=== PATIENT | male | born 1970 | race African-American/Black ===

== ENCOUNTER 2017-03-19 11:34 | Emergency (ER) | payer MEDICAID | END 2017-03-19 12:15 | disposition left against medical advice (07) | LOC: ER 11:34 | DX: M79.604 Pain in right leg (principal); Z53.21 Procedure and treatment not carried out due to patient leaving prior to being seen by health care provider ==

== ENCOUNTER 2017-03-20 16:02 | Emergency (ER) | payer MEDICAID ==
[~2017-03-20] VITALS: Ht 170.2 cm; Wt 81.6 kg
[2017-03-20] MEDS ORDERED: KETOROLAC TROMETH 60MG/2ML VIAL IM ONE (18:00)
[2017-03-20 18:09] VITALS: BP 163/100
== END 2017-03-20 18:52 | disposition home or self-care (01) ==
LOC: ER 16:05
DX: S83.8X2A Sprain of other specified parts of left knee, initial encounter (principal); E11.9 Type 2 diabetes mellitus without complications; E78.5 Hyperlipidemia, unspecified; I10 Essential (primary) hypertension; V18.0XXA Pedal cycle driver injured in noncollision transport accident in nontraffic accident, initial encounter; Y93.89 Activity, other specified; Y99.8 Other external cause status; Y92.89 Other specified places as the place of occurrence of the external cause
CPT/HCPCS: 73562; 96372; 99284; J1885